=== PATIENT | female | born 1995 | race Two or more races ===

== ENCOUNTER → 2024-08-31 | Outpatient (CLI) | payer BC, MEDICAID, SELFPAY ==
--- NOTE | 2024-08-31 13:10 | XR_ITS ---
Examination: Foot, right, 3 views Technique: AP, oblique, lateral views foot, 3 views Date and time of exam: August 31, 2024 1314 hours INDICATIONS: Right foot pain beginning 5 months ago. FINDINGS: Mild bunion deformities Mild narrowing first metatarsophalangeal joint No fracture No cortical bone destruction 3 mm plantar bony calcaneal spur IMPRESSION: Mild hallux valgus bunion deformity Mild osteoarthritis first metatarsophalangeal joint Small plantar bony calcaneal spur
--- NOTE | 2024-08-31 13:10 | XR_ITS ---
EXAMINATION: Ankle, right 3 views . Technique: Ankle AP, oblique, lateral 3 views Date and time of exam: August 31, 2024 1314 hours INDICATIONS: Right ankle pain beginning 2 days ago FINDINGS: No acute fracture No dislocation 3 mm plantar bony calcaneal spur IMPRESSION: 3 mm plantar bony calcaneal spur
== END | disposition home or self-care (01) ==
DX: M19.071 Primary osteoarthritis, right ankle and foot (principal); M20.11 Hallux valgus (acquired), right foot; M21.611 Bunion of right foot; M77.31 Calcaneal spur, right foot
CPT/HCPCS: 73610; 73630